=== PATIENT | male | born 1985 | race African-American/Black ===

== ENCOUNTER 2023-05-25 18:43 | Emergency (ER) | payer BC, SELFPAY ==
--- NOTE | ~2023-05-25 | XR_ITS ---
EXAMINATION: XR chest 2V 05/25/2023 20:02 INDICATION: Chest pain PROCEDURE: 2 view chest COMPARISON: No prior studies for comparison. FINDINGS: The lungs are clear. The cardiomediastinal silhouette is within normal limits. There are no pleural effusions. There is no pneumothorax suspected. IMPRESSION: 1: NO ACUTE CARDIOPULMONARY DISEASE. Reviewed, dictated and finalized at location A.
--- NOTE | 2023-05-25 18:55 | ECG_ITS ---
Measurements Intervals [place] Rate: 100 P: 56 AK: 149 QRS: 18 QRSD: 80 T: 40 QT: 311 QTc: 403 Interpretive Statements SINUS TACHYCARDIA POSSIBLE LEFT ATRIAL ENLARGEMENT RSR' IN V1 OR V2, PROBABLY NORMAL VARIANT BORDERLINE ECG NO PREVIOUS ECG AVAILABLE FOR COMPARISON Electronically Signed On 05-25-2023 20:25:15 CDT by Evangelista Osei D.O.
[2023-05-25 19:22] VITALS: BP 134/90; PULSE 92; RESP 15; TEMP 36.8; O2SAT 100
[2023-05-25 20:03] LABS: Alanine Aminotransferase 26 U/L (6-50); Albumin Level 5.4 g/dL (3.5-5.1); Alkaline Phosphatase 98 U/L (38-126); Anion Gap 16 mmol/L (8-16); Aspartate Amino Transferase 26 U/L (17-59); Bilirubin,Total 0.9 mg/dL (0.2-1.3); Blood Urea Nitrogen 13 mg/dL (9-20); Carbon Dioxide 23 mmol/L (22-30); Chloride 100 mmol/L (98-107); Estimated CRCL calculation 82 ml/min; Estimated Glomerular Filt Rate > 60; Glucose 79 mg/dL (65-110); Lipase 60 U/L (23-300); Potassium 4.1 mmol/L (3.4-5.0); Sodium 139 mmol/L (137-145)
[2023-05-25 20:12] LABS: Basophils Percent Auto 0.3 % (0.2-1.2); Eosinophils Percent Auto 0.5 % (0-4.4); Hemoglobin 15.6 g/dL (14.0-18.0); Immature Granulocyte Absolute 0.03 K/mm3 (0.00-0.031); Immature Granulocyte Percent A 0.3 % (0-0.5); Lymphocytes Absolute Auto 2.68 K/mm3 (0.9-3.2); Lymphocytes Percent Auto 30.6 % (18.3-44.2); Mean Corpuscular HGB Conc 32.5 g/dl (32-36); Mean Corpuscular Hemoglobin 29.8 pg (26-34); Mean Corpuscular Volume 91.8 fl (80-100); Mean Platelet Volume 10.1 fl (7.4-10.4); Monocytes Absolute Auto 0.6 K/mm3 (0.1-0.6); Neutrophils Absolute Auto 5.4 K/mm3 (1.3-6.7); Neutrophils Percent Auto 61.3 % (45.5-73.1); Platelet Count Result 295 k/mm3 (150-375); Red Blood Count 5.23 M/mm3 (4.6-6.20); Red Cell Distribution Width 11.7 % (11.5-14.5); White Blood Count 8.8 K/mm3 (4.5-10.0)
[2023-05-25 20:14] LABS: Troponin I < 0.012 ng/mL (0.000-0.034)
[2023-05-26] VITALS (9 sets, daily range): BP systolic 139–143; BP diastolic 88–89; PULSE 79–91; RESP 12–29; O2SAT 97–100
[2023-05-26 00:24] LABS: Prothrombin Time 13.2 Seconds (11.1-14.7)
[2023-05-26 00:25] LABS: Partial Thromboplastin Time 32.7 SECONDS (22.3-36.8)
[2023-05-26 00:38] LABS: Troponin I < 0.012 ng/mL (0.000-0.034)
--- NOTE | 2023-05-26 02:17 | ED.CHESTPAIN ---
HPI - Chest Pain General Chief Complaint: Chest Pain Stated Complaint: chest pain Time Seen by Provider: 05/26/23 01:18 Source: patient Mode of arrival: ambulatory Limitations: no limitations History of Present Illness HPI narrative: This is a 37-year-old male that presents to the emergency department for episodes of chest pain today. Reports sharp pain that is worse with movement. Reports earlier he was experiencing some lightheadedness and nausea which has resolved. Denies fever, cough, shortness of breath or lower extremity edema. Related Data Home Medications Medication Instructions Recorded Confirmed abacavir 600 mg-dolutegravir 50 tablet 05/26/23 mg-lamivudine 300 mg tablet (Triumeq) losartan 100 mg tablet mg 05/26/23 semaglutide (weight loss) 2.4 mg subcut 05/26/23 mg/0.75 mL subcutaneous pen injector (Wegovy) Allergies Allergy/AdvReac Type Severity Reaction Status Date / Time No Known Allergies Allergy Verified 05/25/23 19:25 Review of Systems Review of Systems: CONSTITUTIONAL: Denies fever CARDIOVASCULAR: Reports chest pain. Denies edema. RESPIRATORY: Denies dyspnea. GASTROINTESTINAL: Denies vomiting NEUROLOGIC: Denies numbness, or weakness. All systems reviewed & are unremarkable except as noted in HPI and below PMFSH Past Medical History Medical History (Updated 05/26/23 @ 02:58 by Carmina Dow PA-C) History of HIV infection Social History Social History (Updated 05/26/23 @ 02:58 by Carmina Dow PA-C) Substance use: never Exam Narrative: GENERAL: Well-appearing, well-nourished, and in no acute distress. HEAD: Normocephalic, atraumatic. EYES: PERRLA and EOMI. ENT: Nares clear, no rhinorrhea or epistaxis. Mucous membranes moist. Oropharynx without tonsillar hypertrophy exudate or other lesions. Bilateral TMs pearly baez non-bulging NECK: Supple. No adenopathy or masses. No JVD CHEST: Clear to auscultation. No respiratory distress. No wheezes rales or rhonchi HEART: Regular rate and rhythm. No murmur heard. Normal peripheral pulses. EXTREMITIES: Normal range of motion. No edema. SKIN: Warm, dry, no rash. NEURO: No focal deficits. Alert and oriented x3. Cranial nerves 2-12 grossly intact PSYCH: Normal mood and affect Course Course Emergency Course: Patient was updated on workup and agrees with plan of care Vital Signs Vital signs: Vital Signs Temperature 98.3 F 05/25/23 19:22 Pulse Rate 92 05/25/23 19:22 Respiratory Rate 15 05/25/23 19:22 Blood Pressure 134/90 05/25/23 19:22 Pulse Oximetry 100 05/25/23 19:22 Oxygen Delivery Room Air 05/25/23 19:22 Temperature 98.3 F 05/25/23 19:22 Pulse Rate 82 05/26/23 02:45 Respiratory Rate 12 05/26/23 02:45 Blood Pressure 143/88 H 05/26/23 02:45 Pulse Oximetry 97 05/26/23 02:15 Oxygen Delivery Room Air 05/25/23 19:22 MDM - Chest Pain MDM Narrative Medical decision making narrative: Patient presents to the emergency department for episodes of chest pain today. This vitals are stable. Reports his pain is worse with movement. Likely musculoskeletal in nature. CBC and metabolic panel without concerning findings. EKG without acute ST changes the baseline and 3 hour troponin are negative. Chest x-ray without acute cardiopulmonary abnormality. Perc criteria negative. Patient was updated on workup. His heart score is 1. Instructed follow-up with primary provider. He was given warnings to return to the ER Differential Diagnosis Differential diagnosis: Likely stable angina, atypical chest pain, costochondritis and other (chest wall pain) Lab Data Attestation: I reviewed the patient's lab results. 05/25/23 19:45 05/25/23 19:45 Labs: Lab Results 05/25/23 05/26/23 Range/Units 19:45 00:07 WBC 8.8 (4.5-10.0) K/mm3 RBC 5.23 (4.6-6.20) M/mm3 Hgb 15.6 (14.0-18.0) g/dL Hct 48.0 (42.0-52.0) % MCV 91.8 (80-100
[2023-05-26] MEDS: KETOROLAC 30 MG/ML VIAL (*BKC) IM (02:30)
== END 2023-05-26 03:14 | disposition home or self-care (01) ==
PROVIDERS: Emergency Medicine; Emergency Provider Physician Assistant
DX: R07.89 Other chest pain (principal); Z21 Asymptomatic human immunodeficiency virus [HIV] infection status; Z79.899 Other long term (current) drug therapy; R94.31 Abnormal electrocardiogram [ECG] [EKG]; R00.0 Tachycardia, unspecified
CPT/HCPCS: 36415; 71046; 80053; 83690; 84484; 85025; 85610; 85730; 93005; 96372; 99284; J1885